=== PATIENT | male | born 1965 | race Caucasian/White ===

== ENCOUNTER 2021-06-30 15:42 | Observation (INO) | payer OTHER ==
[~2021-06-30] VITALS: Ht 167.6 cm; Wt 67.6 kg
[2021-06-30] MEDS ORDERED: NITROGLYCERIN SUBLINGUAL 0.4 MG BOTTLE OF 25. SL PRN (16:00)
[2021-06-30] MEDS ORDERED: ASPIRIN 325 MG TABLET PO ONE (16:00)
--- NOTE | 2021-06-30 16:13 | PHYS DOC ---
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 He states the dizziness has been going on for the last couple of months intermittently. He states is been more consistent today. Patient rates his discomfort at a 9 out of 10. Patient did amphetamines 3 to 4 days ago and he did some Xanax 2 days ago. He is a smoker. He also has a history of WI, COPD, and an aortic valve replacement. Patient was given a 81 mg aspirin at the [facility]. States he usually takes a full aspirin daily, Flomax, levalbuterol. Patient denies abdominal pain, nausea, vomiting diarrhea, syncope, vision change, numbness or tingling, focal weakness, extremity edema. Review of Systems: Review of Systems: Constitutional: Denies fever or chills. [] Eyes: Denies change in visual acuity. [] HENT: Denies nasal congestion or sore throat. [] Respiratory: Denies cough or +shortness of breath. [] Cardiovascular: + chest pain or denies edema. [] GI: Denies abdominal pain, nausea, vomiting, bloody stools or diarrhea. [] : Denies dysuria. [] Musculoskeletal: Denies back pain or joint pain. [] Integument: Denies rash. [] Neurologic: Denies headache, focal weakness or sensory changes. +dizziness[] Endocrine: Denies polyuria or polydipsia. [] Lymphatic: Denies swollen glands. [] Psychiatric: Denies depression or anxiety. [] Heart Score: C/O Chest Pain: Yes HEART Score for Chest Pain: HEART Score for Chest Pain Response (Comments) Value History Slighlty/Non-Suspicious 0 ECG Nonspecific Repolarizatio 1 Age >45 - < 65 1 Risk Factors >3 Risk Factors or Hx CAD 2 Troponin < Normal Limit 0 Total 4 Risk Factors: Risk Factors: DM, Current or recent (<one month) smoker, HTN, HLP, family history of CAD, obesity. Risk Scores: Score 0 - 3: 2.5% MACE over next 6 weeks - Discharge Home Score 4 - 6: 20.3% MACE over next 6 weeks - Admit for Clinical Observation Score 7 - 10: 72.7% MACE over next 6 weeks - Early Invasive Strategies Current Medications: Current Medications Medications (Trade) Dose Ordered Sig/[facility] Start Time Stop Time Status Last Admin Dose Admin Aspirin (Carmen Aspirin) 325 mg 1X ONCE 06/30/21 16:00 06/30/21 16:01 UNV Nitroglycerin (Nitrostat) 0.4 mg PRN Q5MIN PRN 06/30/21 16:00 UNV Physical Exam: PE: Constitutional: Well developed, well nourished, no acute distress, non-toxic appearance. [] HENT: Normocephalic, atraumatic, bilateral external ears normal, oropharynx moist, no oral exudates, nose normal. [] Eyes: PERRLA, EOMI, conjunctiva normal, no discharge. [] Neck: Normal range of motion, no tenderness, supple, no stridor. [] Cardiovascular:Heart rate regular rhythm, no murmur [] Lungs & Thorax: Bilateral breath sounds clear to auscultation [] Abdomen: Bowel sounds normal, soft, no tenderness, no masses, no pulsatile masses. [] Skin: Warm, dry, no erythema, no rash. [] Back: No tenderness, no CVA tenderness. [] Extremities: No tenderness, no cyanosis, no clubbing, ROM intact, no edema. [] Neurologic: Alert and oriented X 3, normal motor function, normal sensory function, no focal deficits noted. [] Psychologic: Affect normal, judgement normal, mood normal. [] Normal physical exam EKG: EK and read by Dr. Go is a sinus rhythm with a inverted T wave in lead III, no STEMI Radiology/Procedures: Radiology/Procedures: [] Impression: [facility] [address] [place], [place] [id number] IMAGING REPORT Signed PATIENT: STELLA OLSON ACCOUNT: [id number] : 1965 LOCATION: ER AGE: 56 SEX: M EXAM STATUS: PRE ER ORD. PHYSICIAN: EMILE WORTHINGTON APRN REASON: soa, chest pain PROCEDURE: PORTABLE CHEST 1V XR CHEST 1V Clinical Indication: Reason: soa, chest pain / Spl. Instructions: / History: Comparison: None. Findings: There are median sternotomy wires and aortic valve prosthesis. The cardiomediastinal silhouette is normal. Minimal linear opacities in the bilateral lung bases may be discoid atelectasis or scarring. Lungs are otherwise clear. There is no pneumothorax. No pleural effusion is appreciated. No acute bone abnormality. There is chronic deformity of the distal right clavicle. IMPRESSION: No acute cardiopulmonary process. Electronically signed by: Naldo Rossi MD (06/30/2021 4:25 PM) [facility] DICTATED and SIGNED BY: NALDO ROSSI MD DATE: 06/30/[address] [facility] [address] [place] [address] IMAGING REPORT Signed PATIENT: STELLA OLSON ACCOUNT: [id number] : 1965 LOCATION: ER AGE: 56 SEX: M EXAM STATUS: REG ER ORD. PHYSICIAN: EMILE WORTHINGTON APRN REASON: dizziness PROCEDURE: CT HEAD WO CONTRAST Exam: CT head INDICATION: Dizziness TECHNIQUE: Sequential axial images through the head were obtained without the administration of IV contrast. Exposure: One or more of the following in the visualized dose reduction techniques were utilized for this examination: 1. Automated exposure control 2. Adjustment of the MA and/or KV according to patient size 3. Use of iterative of reconstructive technique Comparisons: None FINDINGS: No focal parenchymal lesion or hemorrhage is identified. There is no midline shift or sulcal effacement. No acute vascular territory infarction is identified. Ledesma-white distinction is preserved. The ventricular system is within normal limits without compression hydrocephalus. The basal cisterns are well maintained. The visualized portions of the paranasal sinuses and mastoid air cells are well- pneumatized. No acute fractures. IMPRESSION: No acute intracranial abnormality. Electronically signed by: Cassia Galindo MD (06/30/2021 5:46 PM) [facility] DICTATED and SIGNED BY: CASSIA GALINDO MD DATE: 06/30/[address] [facility] [address] [place], [place] [id number] IMAGING REPORT Signed PATIENT: STELLA OLSON ACCOUNT: [id number] : 1965 LOCATION: ER AGE: 56 SEX: M EXAM STATUS: REG ER ORD. PHYSICIAN: EMILE WORTHINGTON APRN REASON: dizziness, SOA CP PROCEDURE: CT ANGIOGRAPHY CHEST EXAMINATION: CTA CHEST CLINICAL HISTORY: Dizziness, shortness of breath, chest pain. Technique: Spiral CT acquisition of the chest from the thoracic inlet to the upper abdomen following IV contrast with coronal and sagittal reformatted images also provided for review. 3D maximum intensity projection images also performed. CT Dose Reduction Employed: One or more of the following individualized dose reduction techniques were utilized for this examination: 1. Automated exposure control 2. Adjustment of the mA and/or kV according to patient size 3. Use of iterative reconstruction technique. COMPARISON: Chest radiograph same day FINDINGS: Pulmonary Vasculature: No evidence of main, lobar, or segmental pulmonary arterial thrombus. Lung Parenchyma, Pleura, and Airways: No focal consolidation. Minimal dependent subsegmental atelectasis bilaterally. Nonspecific 3.1 x 1.5 x 3.2 cm pleural- based mass medial right lung base. According to reports from previous studies for which images are unavailable at the time of interpretation of this exam, this mass previously measured 2.2 x 1.5 cm on prior CTA chest (01/27/2018) and was not metabolically active on prior PET/CT (04/04/2018). No pleural effusion. Central airways patent. Lower Neck, Lymph Nodes, and Mediastinum: Visualized thyroid gland within normal limits. No mediastinal, hilar, or axillary lymphadenopathy. Mediastinal surgical clips. Heart, Pericardium, and Thoracic Vessels: Cardiac chambers normal in size. Prosthetic aortic valve. No pericardial effusion. Mild aortic atherosclerotic calcification without aneurysm. Coronary atherosclerotic ossification, incompletely evaluated. Bones and Soft Tissues: Degenerative changes in the thoracic spine. Upper Abdomen: Partially visualized upper abdomen unremarkable. IMPRESSION: No evidence of main, lobar, or segmental pulmonary embolism. Nonspecific 3.2 cm pleural-based mass medial right lung base as described. Electronically signed by: Cori Amaya DO (06/30/2021 5:57 PM) [facility] DICTATED and SIGNED BY: CORI AMAYA DO DATE: 03/1744 Course & Med Decision Making: Course & Med Decision Making Pertinent Labs and Imaging studies reviewed. (See chart for details) See HPI. Alert and oriented x4. Ambulatory steady gait. Speaks in full clear sentences. Skin pink warm and dry. No extremity edema. Lungs are clear to auscultation all lobes. Moving all extremities equally with equal strength and cop. Troponin normal. Chest x-ray normal. CT angio chest shows a mass that seems to have grown from previous scans. Patient admitted to hospitalist. [] Dragon Disclaimer: Dragon Disclaimer: This electronic medical record was generated, in whole or in part, using a voice recognition dictation system. NIHSS Stroke Scale NIH Stroke Scale: NIH Stroke Scale Response (Comments) Value Level of Consciousness: 0 Alert/Responsive 0 LOC Questions: 0 Answers both correctly 0 LOC Commands: 0 Performs both tasks 0 Best Gaze: 0 Normal 0 Visual: 0 No visual loss 0 Facial Palsy: 0 Normal, symmetrical 0 Motor - Left Arm 0 No drift 0 Motor - Right Arm 0 No drift 0 Motor - Left Leg 0 No drift 0 Motor: Right Leg 0 No drift 0 Limb Ataxia: 0 Absent 0 Sensory: 0 No loss 0 Best Language: 0 Normal 0 Dysathria: 0 Normal 0 Extinction and Inattention: 0 Normal 0 Total 0 Departure Departure Impression: Primary Impression: Chest pain Qualified Codes: R07.9 - Chest pain, unspecified Disposition: ADMITTED INPATIENT Admitting Physician: KHRIS Condition: STABLE EMILE WORTHINGTON APRN Jun 30, 2021 16:12
[2021-06-30 16:21] LABS: BASO % 1 % (0-3); EOS % 1 % (0-3); HEMATOCRIT 51.5 % (39.0-53.0); LYMPH # 1.3 x10^3/uL (1.0-4.8); LYMPH % 16 % (24-48); MEAN CORPUSCULAR HEMOGLOBIN 29 pg (25-35); MEAN CORPUSCULAR HGB CONC 33 g/dL (31-37); MEAN CORPUSCULAR VOLUME 88 fL (79-100); MONO # 0.7 x10^3/uL (0.0-1.1); MONO % 8 % (0-9); NEUT # 6.3 x10^3/uL (1.8-7.7); NEUT % 76 % (31-73); PLATELET COUNT 278 x10^3/uL (140-400); RED BLOOD COUNT 5.87 x10^6/uL (4.30-5.70); RED CELL DISTRIBUTION WIDTH 13.4 % (11.5-14.5); WHITE BLOOD COUNT 8.4 x10^3/uL (4.0-11.0)
--- NOTE | 2021-06-30 16:27 | RAD ---
XR CHEST 1V Clinical Indication: Reason: soa, chest pain / Spl. Instructions: / History: Comparison: None. Findings: There are median sternotomy wires and aortic valve prosthesis. The cardiomediastinal silhouette is no rmal. Minimal linear opacities in the bilateral lung bases may be discoid atelectasis or scarring. Leslee ngs are otherwise clear. There is no pneumothorax. No pleural effusion is appreciated. No acute bone abnormality. There is chronic deformity of the distal right clavicle. IMPRESSION: No acute cardiopulmonary process. Electronically signed by: Naldo Rossi MD (06/30/2021 4:25 PM) [facility]
[2021-06-30 17:13] LABS: CALCIUM 9.1 mg/dL (8.5-10.1); GFR 76.7; POTASSIUM 4.1 mmol/L (3.5-5.1)
[2021-06-30 17:19] LABS: ALBUMIN 3.6 g/dL (3.4-5.0); ALBUMIN/GLOBULIN RATIO 1.2 (1.0-1.7); MAGNESIUM 2.1 mg/dL (1.8-2.4); TOTAL BILIRUBIN 0.5 mg/dL (0.2-1.0); TOTAL PROTEIN 6.7 g/dL (6.4-8.2)
--- NOTE | 2021-06-30 17:29 | EKG ---
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
[2021-06-30] MEDS ORDERED: CONTRAST GIVEN. MC PRN (17:30)
[2021-06-30] MEDS ORDERED: IOHEXOL 350 MG/ML 100 ML VIAL. IV ONE (17:30)
[2021-06-30] MEDS ORDERED: ASPIRIN CHEWABLE 81 MG TABLET. PO ONE (17:30)
--- NOTE | 2021-06-30 17:48 | RAD ---
Exam: CT head INDICATION: Dizziness TECHNIQUE: Sequential axial images through the head were obtained without the administration of IV co ntrast. Exposure: One or more of the following in the visualized dose reduction techniques were utilized for this examination: 1. Automated exposure control 2. Adjustment of the MA and/or KV according to patient size 3. Use of iterative of reconstructive technique Comparisons: None FINDINGS: No focal parenchymal lesion or hemorrhage is identified. There is no midline shift or sulcal effaceme nt. No acute vascular territory infarction is identified. Ledesma-white distinction is preserved. The ventricular system is within normal limits without compression hydrocephalus. The basal cisterns are well maintained. The visualized portions of the paranasal sinuses and mastoid air cells are well-pneumatized. No acute fractures. IMPRESSION: No acute intracranial abnormality. Electronically signed by: Cassia Flores MD (06/30/2021 5:46 PM) [facility]
--- NOTE | 2021-06-30 17:59 | RAD ---
EXAMINATION: CTA CHEST CLINICAL HISTORY: Dizziness, shortness of breath, chest pain. Technique: Spiral CT acquisition of the chest from the thoracic inlet to the upper abdomen following IV contrast with coronal and sagittal reformatted images also provided for review. 3D maximum intensi ty projection images also performed. CT Dose Reduction Employed: One or more of the following individualized dose reduction techniques wer e utilized for this examination: 1. Automated exposure control 2. Adjustment of the mA and/or kV ac cording to patient size 3. Use of iterative reconstruction technique. COMPARISON: Chest radiograph same day FINDINGS: Pulmonary Vasculature: No evidence of main, lobar, or segmental pulmonary arterial thrombus. Lung Parenchyma, Pleura, and Airways: No focal consolidation. Minimal dependent subsegmental atelecta sis bilaterally. Nonspecific 3.1 x 1.5 x 3.2 cm pleural-based mass medial right lung base. According to reports from previous studies for which images are unavailable at the time of interpretation of th is exam, this mass previously measured 2.2 x 1.5 cm on prior CTA chest (01/27/2018) and was not metab olically active on prior PET/CT (04/04/2018). No pleural effusion. Central airways patent. Lower Neck, Lymph Nodes, and Mediastinum: Visualized thyroid gland within normal limits. No mediastin al, hilar, or axillary lymphadenopathy. Mediastinal surgical clips. Heart, Pericardium, and Thoracic Vessels: Cardiac chambers normal in size. Prosthetic aortic valve. N o pericardial effusion. Mild aortic atherosclerotic calcification without aneurysm. Coronary atherosc lerotic ossification, incompletely evaluated. Bones and Soft Tissues: Degenerative changes in the thoracic spine. Upper Abdomen: Partially visualized upper abdomen unremarkable. IMPRESSION: No evidence of main, lobar, or segmental pulmonary embolism. Nonspecific 3.2 cm pleural-based mass medial right lung base as described. Electronically signed by: Hernan Sharma DO (06/30/2021 5:57 PM) [facility]
[2021-06-30] MEDS ORDERED: LORazepam 0.5 MG TABLET PO ONE (18:15)
[2021-06-30] MEDS ORDERED: IV NORMAL SALINE 1000ML BAG 1,000 ML IV ONE (18:15)
[2021-06-30 18:28] LABS: BILIRUBIN,URINE NEGATIVE (NEG); CLARITY,URINE CLEAR; COLOR,URINE YELLOW; NITRITE,URINE NEGATIVE (NEG); PROTEIN,URINE NEGATIVE (NEG-TRACE)
[2021-06-30 18:29] LABS: RBC,URINE 0 /HPF (0-2)
[2021-06-30 18:30] LABS: BACTERIA,URINE 0 /HPF (0-FEW)
[2021-06-30 18:42] LABS: BARBITURATES NEG (NEG); BENZODIAZEPINES NEG (NEG); CANNABINOIDS NEG (NEG); COCAINE NEG (NEG); METHADONE NEG (NEG); OPIATES NEG (NEG); PHENCYCLIDINE NEG (NEG)
[2021-06-30 18:44] LABS: AMPHETAMINE/METHAMPHETAMINE POS (NEG)
[2021-06-30 19:30] VITALS: BP 105/66
[2021-06-30] MEDS ORDERED: ALPR0.5T PO (20:20)
[2021-06-30] MEDS ORDERED: ASPI-630 PO (20:20)
--- NOTE | 2021-06-30 22:54 | PDOC1 ---
History and Physical Date of Service: DOS: DATE: 06/30/21 TIME: 22:54 Chief Complaint: Chief Complain: chest pain History of Present Illness: HPI: Patient is a 56-year-old male sent here from [facility] after working out with chest pressure chest pain and shortness of breath after a nap. He intermittently gets dizzy over the past several months. However has been worsening over the past few weeks. His biggest complaint right now is the chest pain. Left-sided. Corroborates history of methamphetamine abuse consistent with the toxicology findings here. Otherwise denies any other symptoms. Received aspirin at the long-term. Past Medical/Surgical History: PMH/PSH: HTN myocardial infarction, aortic valve replacement Allergies: Allergies: Coded Allergies: No Known Drug Allergies (Unverified , 06/30/21) Family History: Family History: HTN Social History: Social History: amphetamine as he is able to acquire, occ tobacco, no drinking Current Medications: Current Medications Current Medications Aspirin (Carmen Aspirin) 325 mg 1X ONCE PO ; Start 06/30/21 at 16:00; Stop 06/30/21 at 16:01; Status Cancel Nitroglycerin (Nitrostat) 0.4 mg PRN Q5MIN PRN SL CHEST PAIN Last administered on 06/30/21at 18:25; Start 06/30/21 at 16:00 Iohexol (Omnipaque 350 Mg/ml) 100 ml 1X ONCE IV Last administered on 06/30/21at 17:41; Start 06/30/21 at 17:30; Stop 06/30/21 at 17:31; Status DC Info (CONTRAST GIVEN -- Rx MONITORING) 1 each PRN DAILY PRN MC SEE COMMENTS; Start 06/30/21 at 17:30; Stop 07/02/21 at 17:29 Aspirin (Aspirin Chewable) 243 mg 1X ONCE PO Last administered on 06/30/21at 17:30; Start 06/30/21 at 17:30; Stop 06/30/21 at 17:31; Status DC Sodium Chloride 1,000 ml @ 1,000 mls/hr 1X ONCE IV Last administered on 06/30/21at 18:14; Start 06/30/21 at 18:15; Stop 06/30/21 at 19:14; Status DC Lorazepam (Ativan) 0.25 mg 1X ONCE PO Last administered on 06/30/21at 18:25; Start 06/30/21 at 18:15; Stop 06/30/21 at 18:16; Status DC Active Scripts Active Reported Aspirin 81 Mg Tab.chew 1 Tab PO DAILY Xanax (Alprazolam) 0.5 Mg Tablet 1 Tab PO PRN Q6HRS PRN ROS: Review of Systems Review of System Unless noted in HPI 14 point review of systems was negative Physical Exam: Vital Signs: Vital Signs Date Time Temp Pulse Resp B/P (MAP) Pulse Ox O2 Delivery O2 Flow Rate FiO2 06/30/21 19:45 Room Air 06/30/21 19:18 81 136/85 (102) 97 06/30/21 15:42 98.7 18 98.7 Physcial Exam: GEN: No apparent distress. Alert and oriented HEENT: Normal cephalic, atraumatic, external auditory canals are patent EYES: Extraocular muscles are intact, pupil are equally round and reactive to light and accommodation MUSCULOSKELETAL: Well developed , well nourished, good range of motion ENDOCRINE: No thyromegaly was palpated LYMPHATICS: No cervical chain or axillary nodes were noted HEMATOPOIETIC: No bruising NECK: Supple, no JVD, no thyromegaly was noted LUNGS: Clear to auscultation in all lung odonnell without rhonchi or wheezing HEART: RRR, S!, S2 present. Peripheral pulses intact, no obvious murmurs noted ABDOMEN: Soft, nontender. Positive bowel sounds, no organomegaly, normal bow el sounds EXTREMITIES: Without clubbing, cyanosis, or edema. Pedal pulses intact. Negative Homans sign NEUROLOGIC: Normal speech and tone. A&O x 3, moves all extremities, no obvious focal deficits PSYCHIATRIC: Normal affect, normal mood. Stable SKIN: No ulcerations or rashes, good skin turgor, no jaundice VASCULAR: Good capillary refill, neurovascular bundle appears to be intact Labs: Labs: Laboratory Tests Test 06/30/21 16:05 06/30/21 16:55 06/30/21 18:11 White Blood Count 8.4 x10^3/uL (4.0-11.0) Red Blood Count 5.87 x10^6/uL (4.30-5.70) Hemoglobin 17.0 g/dL (13.0-17.5) Hematocrit 51.5 % (39.0-53.0) Mean Corpuscular Volume 88 fL (79-100) Mean Corpuscular Hemoglobin 29 pg (25-35) Mean Corpuscular Hemoglobin Concent 33 g/dL (31-37) Red Cell Distribution Width 13.4 % (11.5-14.5) Platelet Count 278 x10^3/uL (140-400) Neutrophils (%) (Auto) 76 % (31-73) Lymphocytes (%) (Auto) 16 % (24-48) Monocytes (%) (Auto) 8 % (0-9) Eosinophils (%) (Auto) 1 % (0-3) Basophils (%) (Auto) 1 % (0-3) Neutrophils # (Auto) 6.3 x10^3/uL (1.8-7.7) Lymphocytes # (Auto) 1.3 x10^3/uL (1.0-4.8) Monocytes # (Auto) 0.7 x10^3/uL (0.0-1.1) Eosinophils # (Auto) 0.0 x10^3/uL (0.0-0.7) Basophils # (Auto) 0.0 x10^3/uL (0.0-0.2) Troponin I High Sensitivity 7 ng/L (4-75) GQ-Awt-L-Type Natriuretic Peptide 56 pg/mL (0-124) D-Dimer (Cele) 0.61 ug/mlFEU (0.00-0.50) Sodium Level 142 mmol/L (136-145) Potassium Level 4.1 mmol/L (3.5-5.1) Chloride Level 104 mmol/L (98-107) Carbon Dioxide Level 26 mmol/L (21-32) Anion Gap 12 (6-14) Blood Urea Nitrogen 16 mg/dL (8-26) Creatinine 1.0 mg/dL (0.7-1.3) Estimated GFR (Cockcroft-Gault) 76.7 BUN/Creatinine Ratio 16 (6-20) Glucose Level 101 mg/dL (70-99) Calcium Level 9.1 mg/dL (8.5-10.1) Magnesium Level 2.1 mg/dL (1.8-2.4) Total Bilirubin 0.5 mg/dL (0.2-1.0) Aspartate Amino Transf (AST/SGOT) 23 U/L (15-37) Alanine Aminotransferase (ALT/SGPT) 47 U/L (16-63) Alkaline Phosphatase 108 U/L (46-116) Total Protein 6.7 g/dL (6.4-8.2) Albumin 3.6 g/dL (3.4-5.0) Albumin/Globulin Ratio 1.2 (1.0-1.7) Lipase 64 U/L (73-393) Urine Collection Type Unknown Urine Color Yellow Urine Clarity Clear Urine pH 6.0 (<5.0-8.0) Urine Specific [place] 1.010 (1.000-1.030) Urine Protein Negative mg/dL (NEG-TRACE) Urine Glucose (UA) Negative mg/dL (NEG) Urine Ketones (Stick) 40 mg/dL (NEG) Urine Blood Negative (NEG) Urine Nitrite Negative (NEG) Urine Bilirubin Negative (NEG) Urine Urobilinogen Dipstick 2.0 mg/dL (0.2 mg/dL) Urine Leukocyte Esterase Negative (NEG) Urine RBC 0 /HPF (0-2) Urine WBC 1-4 /HPF (0-4) Urine Bacteria 0 /HPF (0-FEW) Urine Mucus Mod /LPF Urine Opiates Screen Neg (NEG) Urine Methadone Screen Neg (NEG) Urine Barbiturates Neg (NEG) Urine Phencyclidine Screen Neg (NEG) Urine Amphetamine/Methamphetamine Pos (NEG) Urine Benzodiazepines Screen Neg (NEG) Urine Cocaine Screen Neg (NEG) Urine Cannabinoids Screen Neg (NEG) Urine Ethyl Alcohol Neg (NEG) Laboratory Tests Test 06/30/21 16:05 06/30/21 16:55 06/30/21 18:11 White Blood Count 8.4 x10^3/uL (4.0-11.0) Red Blood Count 5.87 x10^6/uL (4.30-5.70) Hemoglobin 17.0 g/dL (13.0-17.5) Hematocrit 51.5 % (39.0-53.0) Mean Corpuscular Volume 88 fL (79-100) Mean Corpuscular Hemoglobin 29 pg (25-35) Mean Corpuscular Hemoglobin Concent 33 g/dL (31-37) Red Cell Distribution Width 13.4 % (11.5-14.5) Platelet Count 278 x10^3/uL (140-400) Neutrophils (%) (Auto) 76 % (31-73) Lymphocytes (%) (Auto) 16 % (24-48) Monocytes (%) (Auto) 8 % (0-9) Eosinophils (%) (Auto) 1 % (0-3) Basophils (%) (Auto) 1 % (0-3) Neutrophils # (Auto) 6.3 x10^3/uL (1.8-7.7) Lymphocytes # (Auto) 1.3 x10^3/uL (1.0-4.8) Monocytes # (Auto) 0.7 x10^3/uL (0.0-1.1) Eosinophils # (Auto) 0.0 x10^3/uL (0.0-0.7) Basophils # (Auto) 0.0 x10^3/uL (0.0-0.2) Troponin I High Sensitivity 7 ng/L (4-75) RF-Lka-B-Type Natriuretic Peptide 56 pg/mL (0-124) D-Dimer (Cele) 0.61 ug/mlFEU (0.00-0.50) Sodium Level 142 mmol/L (136-145) Potassium Level 4.1 mmol/L (3.5-5.1) Chloride Level 104 mmol/L (98-107) Carbon Dioxide Level 26 mmol/L (21-32) Anion Gap 12 (6-14) Blood Urea Nitrogen 16 mg/dL (8-26) Creatinine 1.0 mg/dL (0.7-1.3) Estimated GFR (Cockcroft-Gault) 76.7 BUN/Creatinine Ratio 16 (6-20) Glucose Level 101 mg/dL (70-99) Calcium Level 9.1 mg/dL (8.5-10.1) Magnesium Level 2.1 mg/dL (1.8-2.4) Total Bilirubin 0.5 mg/dL (0.2-1.0) Aspartate Amino Transf (AST/SGOT) 23 U/L (15-37) Alanine Aminotransferase (ALT/SGPT) 47 U/L (16-63) Alkaline Phosphatase 108 U/L (46-116) Total Protein 6.7 g/dL (6.4-8.2) Albumin 3.6 g/dL (3.4-5.0) Albumin/Globulin Ratio 1.2 (1.0-1.7) Lipase 64 U/L (73-393) Urine Collection Type Unknown Urine Color Yellow Urine Clarity Clear Urine pH 6.0 (<5.0-8.0) Urine Specific [place] 1.010 (1.000-1.030) Urine Protein Negative mg/dL (NEG-TRACE) Urine Glucose (UA) Negative mg/dL (NEG) Urine Ketones (Stick) 40 mg/dL (NEG) Urine Blood Negative (NEG) Urine Nitrite Negative (NEG) Urine Bilirubin Negative (NEG) Urine Urobilinogen Dipstick 2.0 mg/dL (0.2 mg/dL) Urine Leukocyte Esterase Negative (NEG) Urine RBC 0 /HPF (0-2) Urine WBC 1-4 /HPF (0-4) Urine Bacteria 0 /HPF (0-FEW) Urine Mucus Mod /LPF Urine Opiates Screen Neg (NEG) Urine Methadone Screen Neg (NEG) Urine Barbiturates Neg (NEG) Urine Phencyclidine Screen Neg (NEG) Urine Amphetamine/Methamphetamine Pos (NEG) Urine Benzodiazepines Screen Neg (NEG) Urine Cocaine Screen Neg (NEG) Urine Cannabinoids Screen Neg (NEG) Urine Ethyl Alcohol Neg (NEG) Assessment/Plan Assessment/Plan Chest pain with unremarkable work-up possibly noncardiac in nature or substance abuse particularly methamphetamine -Chest pain work-up pretty unremarkable as far. Normal troponins. Echo pending -We will try PPI in case this is GI origin -Rudolph diet -PAT consult -Cardiac consult -Home meds as indicated -DVT prophylaxis Justifications for Admission Other Justification LISA LUU MD Jun 30, 2021 22:54
[2021-06-30] MEDS ORDERED: ALPRAZolam 0.5 MG TABLET PO PRN (23:15)
[2021-06-30 23:21] VITALS: BP 127/75
[2021-07-01 03:00] VITALS: BP 143/85
[2021-07-01 06:44] VITALS: BP 129/79
[2021-07-01] MEDS ORDERED: ASPIRIN CHEWABLE 81 MG TABLET. PO SCH (08:00)
--- NOTE | 2021-07-01 10:34 | PDOC ---
[employer] PROGRESS NOTE Date of Service DOS: DATE: 07/01/21 TIME: 10:32 Chief Complaint Chief Complaint Chest pain Methamphetamine abuse History of valvular heart disease with valve replacement Tobacco abuse History of Present Illness History of Present Illness 07/01/2021 Patient seen and examined Discussed with RN Chart reviewed His work-up is negative We will likely discharge this afternoon back to [facility] if cardiology agrees Vitals/I&O Vitals/I&O: Vital Signs Date Time Temp Pulse Resp B/P (MAP) Pulse Ox O2 Delivery O2 Flow Rate FiO2 07/01/21 06:44 97.3 76 18 129/79 (96) 96 Room Air 97.3 I & O 06/30/21 06/30/21 07/01/21 15:00 23:00 07:00 Intake Total 0 ml 100 ml Balance 0 ml 100 ml Physical Exam General: Alert Heart: Regular rate Lungs: Clear Abdomen: Normal bowel sounds Extremities: No clubbing Skin: No rashes Labs Labs: Laboratory Tests Test 06/30/21 16:05 06/30/21 16:55 06/30/21 18:11 06/30/21 22:30 White Blood Count 8.4 x10^3/uL (4.0-11.0) Red Blood Count 5.87 x10^6/uL (4.30-5.70) Hemoglobin 17.0 g/dL (13.0-17.5) Hematocrit 51.5 % (39.0-53.0) Mean Corpuscular Volume 88 fL (79-100) Mean Corpuscular Hemoglobin 29 pg (25-35) Mean Corpuscular Hemoglobin Concent 33 g/dL (31-37) Red Cell Distribution Width 13.4 % (11.5-14.5) Platelet Count 278 x10^3/uL (140-400) Neutrophils (%) (Auto) 76 % (31-73) Lymphocytes (%) (Auto) 16 % (24-48) Monocytes (%) (Auto) 8 % (0-9) Eosinophils (%) (Auto) 1 % (0-3) Basophils (%) (Auto) 1 % (0-3) Neutrophils # (Auto) 6.3 x10^3/uL (1.8-7.7) Lymphocytes # (Auto) 1.3 x10^3/uL (1.0-4.8) Monocytes # (Auto) 0.7 x10^3/uL (0.0-1.1) Eosinophils # (Auto) 0.0 x10^3/uL (0.0-0.7) Basophils # (Auto) 0.0 x10^3/uL (0.0-0.2) Troponin I High Sensitivity 7 ng/L (4-75) 7 ng/L (4-75) CL-Lew-P-Type Natriuretic Peptide 56 pg/mL (0-124) D-Dimer (Cele) 0.61 ug/mlFEU (0.00-0.50) Sodium Level 142 mmol/L (136-145) Potassium Level 4.1 mmol/L (3.5-5.1) Chloride Level 104 mmol/L (98-107) Carbon Dioxide Level 26 mmol/L (21-32) Anion Gap 12 (6-14) Blood Urea Nitrogen 16 mg/dL (8-26) Creatinine 1.0 mg/dL (0.7-1.3) Estimated GFR (Cockcroft-Gault) 76.7 BUN/Creatinine Ratio 16 (6-20) Glucose Level 101 mg/dL (70-99) Calcium Level 9.1 mg/dL (8.5-10.1) Magnesium Level 2.1 mg/dL (1.8-2.4) Total Bilirubin 0.5 mg/dL (0.2-1.0) Aspartate Amino Transf (AST/SGOT) 23 U/L (15-37) Alanine Aminotransferase (ALT/SGPT) 47 U/L (16-63) Alkaline Phosphatase 108 U/L (46-116) Total Protein 6.7 g/dL (6.4-8.2) Albumin 3.6 g/dL (3.4-5.0) Albumin/Globulin Ratio 1.2 (1.0-1.7) Lipase 64 U/L (73-393) Urine Collection Type Unknown Urine Color Yellow Urine Clarity Clear Urine pH 6.0 (<5.0-8.0) Urine Specific [place] 1.010 (1.000-1.030) Urine Protein Negative mg/dL (NEG-TRACE) Urine Glucose (UA) Negative mg/dL (NEG) Urine Ketones (Stick) 40 mg/dL (NEG) Urine Blood Negative (NEG) Urine Nitrite Negative (NEG) Urine Bilirubin Negative (NEG) Urine Urobilinogen Dipstick 2.0 mg/dL (0.2 mg/dL) Urine Leukocyte Esterase Negative (NEG) Urine RBC 0 /HPF (0-2) Urine WBC 1-4 /HPF (0-4) Urine Bacteria 0 /HPF (0-FEW) Urine Mucus Mod /LPF Urine Opiates Screen Neg (NEG) Urine Methadone Screen Neg (NEG) Urine Barbiturates Neg (NEG) Urine Phencyclidine Screen Neg (NEG) Urine Amphetamine/Methamphetamine Pos (NEG) Urine Benzodiazepines Screen Neg (NEG) Urine Cocaine Screen Neg (NEG) Urine Cannabinoids Screen Neg (NEG) Urine Ethyl Alcohol Neg (NEG) Test 07/01/21 02:00 Troponin I High Sensitivity 9 ng/L (4-75) Assessment and Plan Assessmemt and Plan Problems Medical Problems: (1) Chest pain Status: Acut Resolving atypical chest pain with negative work-up Methamphetamine abuse History of valvular heart disease with valve replacement Tobacco abuse Plan Hope to discharge this afternoon if okay with cardiology Comment Review of Relevant I have reviewed the following items day (where applicable) has been applied. Medications: Current Medications Medications (Trade) Dose Ordered Sig/Zayra Route PRN Reason Start Time Stop Time Status Last Admin Dose Admin Nitroglycerin (Nitrostat) 0.4 mg PRN Q5MIN PRN SL CHEST PAIN 06/30/21 16:00 06/30/21 18:25 Iohexol (Omnipaque 350 Mg/ml) 100 ml 1X ONCE IV 06/30/21 17:30 06/30/21 17:31 DC 06/30/21 17:41 Aspirin (Aspirin Chewable) 243 mg 1X ONCE PO 06/30/21 17:30 06/30/21 17:31 DC 06/30/21 17:30 Sodium Chloride 1,000 ml @ 1,000 mls/hr 1X ONCE IV 06/30/21 18:15 06/30/21 19:14 DC 06/30/21 18:14 Lorazepam (Ativan) 0.25 mg 1X ONCE PO 06/30/21 18:15 06/30/21 18:16 DC 06/30/21 18:25 Aspirin (Aspirin Chewable) 81 mg DAILY08 PO 07/01/21 08:00 07/01/21 09:07 Justifications for Admission Other Justification JERMAINE SHAFER III DO Jul 01, 2021 10:34
[2021-07-01 11:00] VITALS: BP 131/81
--- NOTE | 2021-07-01 11:47 | DS ---
DATE OF DISCHARGE: 07/01/2021 ADMITTING DIAGNOSIS: Chest pain. DISCHARGE DIAGNOSES: 1. Atypical chest pain. 2. History of methamphetamine abuse (he was meth positive on his drug screen here). 3. History of cardiac valve replacement (tissue valve). 4. History of anxiety, tobacco abuse. HOSPITAL COURSE: The patient is a pleasant middle-aged male who presented with chest pain. He was in [facility] and developed some chest pain. We admitted him, did serial enzymes, serial EKGs. We consulted Cardiology. So far, his workup is negative. I saw him and examined this morning, he looks great, wants to get out of the hospital. If okay with Cardiology, we plan to discharge back on his continued same home medications. DISPOSITION: [facility]. ACTIVITY: As tolerated. DIET: Low sodium. MEDICATIONS: P.r.n., Xanax 0.5 q. 6 hours and aspirin 81 a day. TOTAL TIME: [address]: Ysabel TID: [id number]
--- NOTE | 2021-07-01 12:23 | NUR ---
Patient discharged to [facility]. Discharge report given to [facility] medical team. Piv and monitor removed. Guard escorted patient off unit per handcuffs.
--- NOTE | 2021-07-01 16:08 | PDOC2 ---
CONSULT Date of Consult Date of Consult DATE: 07/01/21 TIME: 16:02 Reason for Consult Reason for Consult: Chest pain, dizziness, AVR Referring Physician Referring Physician: Dr. Olivo Identification/Chief Complaint Chief Complaint Dizziness and chest pain Source Source: Chart review, Patient History of Present Illness Reason for Visit: The patient is a 56-year-old male who was brought to the emergency room for episodes of dizziness and chest pressure. He also reports some episodes of mild shortness of breath. Patient has been in worked up and findings include 3 sets of normal enzymes and no acute EKG changes. Chest x-ray showed no acute processes. CT head scan showed no acute changes. CT of the chest showed no evidence of PE. Patient did have a 3.2 cm pleural-based mass in the right base which apparently had been previously present although it may have increased in size. The patient has a history of an aortic valve replacement, COPD and coronary artery disease. He also took amphetamine several days ago. He presently had a care home facility. He reports feeling significantly better today with resolution of his dizziness and chest discomfort. Rhythm has remained stable overnight. Past Medical History Cardiovascular: CAD, Aortic stenosis Pulmonary: COPD Psych: Anxiety Past Surgical History Past Surgical History: Other (Aortic valve replacement) Family History Family History: Hypertension Social History 1 pack per day ALCOHOL: none Drugs: Other (Amphetamines) Current Problem List Problem List Problems Medical Problems: (1) Chest pain Status: Acute Current Medications Current Medications Current Medications Aspirin (Carmen Aspirin) 325 mg 1X ONCE PO ; Start 06/30/21 at 16:00; Stop 06/30 at 16:01; Status Cancel Nitroglycerin (Nitrostat) 0.4 mg PRN Q5MIN PRN SL CHEST PAIN Last administered on 06/30/21at 18:25; Start 06/30/21 at 16:00; Stop 07/01/21 at 12:29; Status DC Iohexol (Omnipaque 350 Mg/ml) 100 ml 1X ONCE IV Last administered on 06/30/21at 17:41; Start 06/30/21 at 17:30; Stop 06/30/21 at 17:31; Status DC Info (CONTRAST GIVEN -- Rx MONITORING) 1 each PRN DAILY PRN MC SEE COMMENTS; Start 06/30/21 at 17:30; Stop 07/01/21 at 12:29; Status DC Aspirin (Aspirin Chewable) 243 mg 1X ONCE PO Last administered on 06/30/21at 17:30; Start 06/30/21 at 17:30; Stop 06/30/21 at 17:31; Status DC Sodium Chloride 1,000 ml @ 1,000 mls/hr 1X ONCE IV Last administered on 06/30/21at 18:14; Start 06/30/21 at 18:15; Stop 06/30/21 at 19:14; Status DC Lorazepam (Ativan) 0.25 mg 1X ONCE PO Last administered on 06/30/21at 18:25; Start 06/30/21 at 18:15; Stop 06/30/21 at 18:16; Status DC Alprazolam (Xanax) 0.5 mg PRN Q6HRS PRN PO ANXIETY / AGITATION; Start 06/30/21 at 23:15; Stop 07/01/21 at 12:29; Status DC Aspirin (Aspirin Chewable) 81 mg DAILY08 PO Last administered on 07/01/21at 09:07; Start 07/01/21 at 08:00; Stop 07/01/21 at 12:29; Status DC Active Scripts Active Reported Aspirin 81 Mg Tab.chew 1 Tab PO DAILY Xanax (Alprazolam) 0.5 Mg Tablet 1 Tab PO PRN Q6HRS PRN Allergies Allergies: Coded Allergies: No Known Drug Allergies (Unverified , 06/30/21) ROS Cardiovascular: yes Chest Pain Neurological: Yes Dizziness Physical Exam General: No acute distress HEENT: Atraumatic Lungs: Clear to auscultation Heart: Regular rate Abdomen: Normal bowel sounds Vitals VITALS Vital Signs Date Time Temp Pulse Resp B/P (MAP) Pulse Ox O2 Delivery O2 Flow Rate FiO2 07/01/21 11:00 98.6 86 20 131/81 (98) 94 Room Air 98.6 Labs Labs Laboratory Tests Test 06/30/21 16:05 06/30/21 16:55 06/30/21 18:11 06/30/21 22:30 White Blood Count 8.4 x10^3/uL (4.0-11.0) Red Blood Count 5.87 x10^6/uL (4.30-5.70) Hemoglobin 17.0 g/dL (13.0-17.5) Hematocrit 51.5 % (39.0-53.0) Mean Corpuscular Volume 88 fL (79-100) Mean Corpuscular Hemoglobin 29 pg (25-35) Mean Corpuscular Hemoglobin Concent 33 g/dL (31-37) Red Cell Distribution Width 13.4 % (11.5-14.5) Platelet Count 278 x10^3/uL (140-400) Neutrophils (%) (Auto) 76 % (31-73) Lymphocytes (%) (Auto) 16 % (24-48) Monocytes (%) (Auto) 8 % (0-9) Eosinophils (%) (Auto) 1 % (0-3) Basophils (%) (Auto) 1 % (0-3) Neutrophils # (Auto) 6.3 x10^3/uL (1.8-7.7) Lymphocytes # (Auto) 1.3 x10^3/uL (1.0-4.8) Monocytes # (Auto) 0.7 x10^3/uL (0.0-1.1) Eosinophils # (Auto) 0.0 x10^3/uL (0.0-0.7) Basophils # (Auto) 0.0 x10^3/uL (0.0-0.2) Troponin I High Sensitivity 7 ng/L (4-75) 7 ng/L (4-75) UK-Xgc-K-Type Natriuretic Peptide 56 pg/mL (0-124) D-Dimer (Cele) 0.61 ug/mlFEU (0.00-0.50) Sodium Level 142 mmol/L (136-145) Potassium Level 4.1 mmol/L (3.5-5.1) Chloride Level 104 mmol/L (98-107) Carbon Dioxide Level 26 mmol/L (21-32) Anion Gap 12 (6-14) Blood Urea Nitrogen 16 mg/dL (8-26) Creatinine 1.0 mg/dL (0.7-1.3) Estimated GFR (Cockcroft-Gault) 76.7 BUN/Creatinine Ratio 16 (6-20) Glucose Level 101 mg/dL (70-99) Calcium Level 9.1 mg/dL (8.5-10.1) Magnesium Level 2.1 mg/dL (1.8-2.4) Total Bilirubin 0.5 mg/dL (0.2-1.0) Aspartate Amino Transf (AST/SGOT) 23 U/L (15-37) Alanine Aminotransferase (ALT/SGPT) 47 U/L (16-63) Alkaline Phosphatase 108 U/L (46-116) Total Protein 6.7 g/dL (6.4-8.2) Albumin 3.6 g/dL (3.4-5.0) Albumin/Globulin Ratio 1.2 (1.0-1.7) Lipase 64 U/L (73-393) Urine Collection Type Unknown Urine Color Yellow Urine Clarity Clear Urine pH 6.0 (<5.0-8.0) Urine Specific [place] 1.010 (1.000-1.030) Urine Protein Negative mg/dL (NEG-TRACE) Urine Glucose (UA) Negative mg/dL (NEG) Urine Ketones (Stick) 40 mg/dL (NEG) Urine Blood Negative (NEG) Urine Nitrite Negative (NEG) Urine Bilirubin Negative (NEG) Urine Urobilinogen Dipstick 2.0 mg/dL (0.2 mg/dL) Urine Leukocyte Esterase Negative (NEG) Urine RBC 0 /HPF (0-2) Urine WBC 1-4 /HPF (0-4) Urine Bacteria 0 /HPF (0-FEW) Urine Mucus Mod /LPF Urine Opiates Screen Neg (NEG) Urine Methadone Screen Neg (NEG) Urine Barbiturates Neg (NEG) Urine Phencyclidine Screen Neg (NEG) Urine Amphetamine/Methamphetamine Pos (NEG) Urine Benzodiazepines Screen Neg (NEG) Urine Cocaine Screen Neg (NEG) Urine Cannabinoids Screen Neg (NEG) Urine Ethyl Alcohol Neg (NEG) Test 07/01/21 02:00 Troponin I High Sensitivity 9 ng/L (4-75) Laboratory Tests Test 06/30/21 16:05 06/30/21 16:55 06/30/21 18:11 06/30/21 22:30 White Blood Count 8.4 x10^3/uL (4.0-11.0) Red Blood Count 5.87 x10^6/uL (4.30-5.70) Hemoglobin 17.0 g/dL (13.0-17.5) Hematocrit 51.5 % (39.0-53.0) Mean Corpuscular Volume 88 fL (79-100) Mean Corpuscular Hemoglobin 29 pg (25-35) Mean Corpuscular Hemoglobin Concent 33 g/dL (31-37) Red Cell Distribution Width 13.4 % (11.5-14.5) Platelet Count 278 x10^3/uL (140-400) Neutrophils (%) (Auto) 76 % (31-73) Lymphocytes (%) (Auto) 16 % (24-48) Monocytes (%) (Auto) 8 % (0-9) Eosinophils (%) (Auto) 1 % (0-3) Basophils (%) (Auto) 1 % (0-3) Neutrophils # (Auto) 6.3 x10^3/uL (1.8-7.7) Lymphocytes # (Auto) 1.3 x10^3/uL (1.0-4.8) Monocytes # (Auto) 0.7 x10^3/uL (0.0-1.1) Eosinophils # (Auto) 0.0 x10^3/uL (0.0-0.7) Basophils # (Auto) 0.0 x10^3/uL (0.0-0.2) Troponin I High Sensitivity 7 ng/L (4-75) 7 ng/L (4-75) XJ-Sex-S-Type Natriuretic Peptide 56 pg/mL (0-124) D-Dimer (Cele) 0.61 ug/mlFEU (0.00-0.50) Sodium Level 142 mmol/L (136-145) Potassium Level 4.1 mmol/L (3.5-5.1) Chloride Level 104 mmol/L (98-107) Carbon Dioxide Level 26 mmol/L (21-32) Anion Gap 12 (6-14) Blood Urea Nitrogen 16 mg/dL (8-26) Creatinine 1.0 mg/dL (0.7-1.3) Estimated GFR (Cockcroft-Gault) 76.7 BUN/Creatinine Ratio 16 (6-20) Glucose Level 101 mg/dL (70-99) Calcium Level 9.1 mg/dL (8.5-10.1) Magnesium Level 2.1 mg/dL (1.8-2.4) Total Bilirubin 0.5 mg/dL (0.2-1.0) Aspartate Amino Transf (AST/SGOT) 23 U/L (15-37) Alanine Aminotransferase (ALT/SGPT) 47 U/L (16-63) Alkaline Phosphatase 108 U/L (46-116) Total Protein 6.7 g/dL (6.4-8.2) Albumin 3.6 g/dL (3.4-5.0) Albumin/Globulin Ratio 1.2 (1.0-1.7) Lipase 64 U/L (73-393) Urine Collection Type Unknown Urine Color Yellow Urine Clarity Clear Urine pH 6.0 (<5.0-8.0) Urine Specific [place] 1.010 (1.000-1.030) Urine Protein Negative mg/dL (NEG-TRACE) Urine Glucose (UA) Negative mg/dL (NEG) Urine Ketones (Stick) 40 mg/dL (NEG) Urine Blood Negative (NEG) Urine Nitrite Negative (NEG) Urine Bilirubin Negative (NEG) Urine Urobilinogen Dipstick 2.0 mg/dL (0.2 mg/dL) Urine Leukocyte Esterase Negative (NEG) Urine RBC 0 /HPF (0-2) Urine WBC 1-4 /HPF (0-4) Urine Bacteria 0 /HPF (0-FEW) Urine Mucus Mod /LPF Urine Opiates Screen Neg (NEG) Urine Methadone Screen Neg (NEG) Urine Barbiturates Neg (NEG) Urine Phencyclidine Screen Neg (NEG) Urine Amphetamine/Methamphetamine Pos (NEG) Urine Benzodiazepines Screen Neg (NEG) Urine Cocaine Screen Neg (NEG) Urine Cannabinoids Screen Neg (NEG) Urine Ethyl Alcohol Neg (NEG) Test 07/01/21 02:00 Troponin I High Sensitivity 9 ng/L (4-75) Images Images Imaging as above. Assessment/Plan Assessment/Plan 1. Dizziness. Patient's rhythm has remained stable overnight. CT scan of the head has shown no acute changes. We will continue present treatment. 2. Chest discomfort. Discomfort has largely resolved. Chest x-ray shows no acute processes. EKG shows no acute ischemic changes. Troponin has been normal x3. We will continue present treatment. 3. History of an aortic valve replacement. Patient states he has appointment with a cashier and waiter/waitress in approximately a month to follow. He reports the valve is approximately 8 years old. 4. Amphetamine abuse. MERLE AMADOR MD Jul 01, 2021 16:08
== END 2021-07-01 12:20 ==
LOC: EEVIPCON 15:42 → ER 15:42 → 6 SOUTH 17:55
PROVIDERS: ADMIT Student in an Organized Health Care Education/Training Program; ATTEND Student in an Organized Health Care Education/Training Program
DX: R07.89 Other chest pain (principal); I10 Essential (primary) hypertension; I25.10 Atherosclerotic heart disease of native coronary artery without angina pectoris; I21.9 Acute myocardial infarction, unspecified; I25.2 Old myocardial infarction; I35.0 Nonrheumatic aortic (valve) stenosis; J44.9 Chronic obstructive pulmonary disease, unspecified; R42 Dizziness and giddiness; F15.10 Other stimulant abuse, uncomplicated; F17.200 Nicotine dependence, unspecified, uncomplicated; Z79.82 Long term (current) use of aspirin; Z95.2 Presence of prosthetic heart valve; Z79.899 Other long term (current) drug therapy; Z98.890 Other specified postprocedural states
CPT/HCPCS: 36415; 70450; 71045; 71275; 80053; 80307; 81001; 83690; 83735; 83880; 84484; 85025; 85379; 93005; 96360; 99285; 99406; G0378; J7030; Q9967; G0379